=== PATIENT | female | born 1945 | race Caucasian/White ===

== ENCOUNTER 2016-10-19 10:33 | Day surgery (SDC) | payer OTHER, BC ==
[~2016-10-19] VITALS: Ht 175.3 cm; Wt 86.2 kg
[~2016-10-19 10:33] MED LIST: ATIVAN1 MG PO; OSTEO BI-FLEX1 EAC2 PO; PRINIVIL20 MG PO; SYNTHROID112 MCG PO; TUMS500 MG PO; ZOLOFT100 MG PO; ZOLOFT50 MG PO
[2016-10-19 11:10] LABS: HEMATOCRIT 42.3 % (36.0-46.0); MCH 28.9 PG (29.0-34.0); MCHC 32.6 G/DL (30.0-36.0); MCV 88.7 FL (83-99); MEAN PLAT.VOLUME 9.1 uM^3 (9.5-12.4); PLATELET COUNT 306 K/uL (156-360); RBC DIS.WIDTH-CV 11.8 % (11.8-14.6); RBC DIS.WIDTH-SD 38.7 % (39-53); RED BLOOD COUNT 4.77 M/uL (3.80-5.20); WHITE BLOOD COUNT 6.5 K/uL (4.1-10.2)
[2016-10-19 11:18] VITALS: BP 174/78
[2016-10-19 11:33] LABS: ALKALINE PHOSPHATASE 61 IU/L (3-129); ANION GAP 7 MEQ/L (2-14); CHLORIDE 105 MEQ/L (99-109); GFR ESTIMATE (CALCULATED) 58 mL/min/; GLUCOSE 90 mg/dL (70-99); POTASSIUM 4.7 MEQ/L (3.7-5.4); SAMPLE HEMOLYSIS CHECK 0; SAMPLE ICTERIC CHECK 0; SAMPLE LIPEMIA CHECK 0; SODIUM 140 MEQ/L (136-147); TOTAL BILIRUBIN 0.6 MG/DL (0.0-1.0); UREA NITROGEN (BUN) 15 mg/dL (9-23)
[2016-10-19 14:32] VITALS: BP 157/80
[2016-10-19 15:17] VITALS: BP 148/89
== END 2016-10-19 15:26 | disposition home or self-care (01) ==
LOC: SDC 10:33
PROVIDERS: Ophthalmology
DX: H33.002 Unspecified retinal detachment with retinal break, left eye (principal); H33.42 Traction detachment of retina, left eye; I10 Essential (primary) hypertension; C03.9 Malignant neoplasm of gum, unspecified; K21.9 Gastro-esophageal reflux disease without esophagitis
CPT/HCPCS: 80053; 85027; 93005; J0690; J1100; J1120; J2795; J3300

== ENCOUNTER 2016-11-10 11:05 | Day surgery (SDC) | payer OTHER, BC ==
[~2016-11-10] VITALS: Ht 165.1 cm; Wt 86.0 kg
[2016-11-10] MEDS ORDERED: MOTRIN IB200 MG PO (11:32)
[2016-11-10 11:35] VITALS: BP 178/83
[2016-11-10 15:43] VITALS: BP 176/82
[2016-11-10 16:12] VITALS: BP 159/74
== END 2016-11-10 16:18 | disposition home or self-care (01) ==
LOC: SDC 11:05
DX: H35.372 Puckering of macula, left eye (principal); I10 Essential (primary) hypertension; E03.9 Hypothyroidism, unspecified; R00.1 Bradycardia, unspecified; K21.9 Gastro-esophageal reflux disease without esophagitis
CPT/HCPCS: J0690; J1100; J1120; J1885; J2795; J3300; J7120

== ENCOUNTER 2017-05-13 05:37 | Day surgery (SDC) | payer OTHER, BC ==
[~2017-05-13] VITALS: Ht 165.1 cm; Wt 85.7 kg
[~2017-05-13 05:37] MED LIST changes: +MOTRIN IB200 MG PO
[2017-05-13 06:07] VITALS: BP 146/93
[2017-05-13 09:20] VITALS: BP 152/73
[2017-05-13 10:03] VITALS: BP 190/81
== END 2017-05-13 09:55 | disposition home or self-care (01) ==
LOC: SDC 05:37
DX: H33.42 Traction detachment of retina, left eye (principal); H43.392 Other vitreous opacities, left eye; I10 Essential (primary) hypertension; K21.9 Gastro-esophageal reflux disease without esophagitis; E03.9 Hypothyroidism, unspecified
CPT/HCPCS: J0690; J1100; J1120; J1885; J2405; J2795; J7120

== ENCOUNTER 2017-06-10 15:27 | Day surgery (SDC) | payer OTHER, BC ==
[~2017-06-10] VITALS: Ht 165.1 cm; Wt 85.9 kg
[2017-06-10 15:58] VITALS: BP 150/70
[2017-06-10 16:18] LABS: BASOPHIL (%) 1.2 % (0-1); BASOPHIL COUNT 0.1 K/uL (0-0.1); EOSINOPHIL (%) 1.5 % (0-5); EOSINOPHIL COUNT 0.1 K/uL (0-0.3); HEMATOCRIT 42.4 % (36.0-46.0); HEMOGLOBIN 14.5 G/DL (11.9-15.5); IMMATURE GRANULOCYTE (%) 0.3 % (0.0-0.7); LYMPHOCYTE (%) 36.4 % (15-42); LYMPHOCYTE COUNT 2.5 K/uL (1.0-2.8); MCH 29.7 PG (29.0-34.0); MCHC 34.2 G/DL (30.0-36.0); MCV 86.9 FL (83-99); MONOCYTE (%) 8.3 % (3-12); MONOCYTE COUNT 0.6 K/uL (0-0.8); NEUTROPHIL (%) 52.3 % (45-76); NEUTROPHIL COUNT 3.5 K/uL (1.8-6.4); PLATELET COUNT 325 K/uL (156-360); RBC DIS.WIDTH-CV 11.8 % (11.8-14.6); RBC DIS.WIDTH-SD 37.5 % (39-53); RED BLOOD COUNT 4.88 M/uL (3.80-5.20); WHITE BLOOD COUNT 6.7 K/uL (4.1-10.2)
[2017-06-10 16:22] LABS: POTASSIUM ND MEQ/L (3.7-5.4)
[2017-06-10 16:42] LABS: ALBUMIN 4.3 G/DL (3.2-4.8); ALKALINE PHOSPHATASE 71 IU/L (3-129); ALT (GPT) 12 IU/L (3-49); AST (GOT) 45 IU/L (2-34); CHLORIDE 105 MEQ/L (99-109); CREATININE 0.7 MG/DL (0.6-1.3); GFR ESTIMATE (CALCULATED) > 59 mL/min/; GLUCOSE 85 mg/dL (70-99); SODIUM 135 MEQ/L (136-147); TOTAL BILIRUBIN 0.8 MG/DL (0.0-1.0); TOTAL PROTEIN 8.1 G/DL (6.4-8.3); UREA NITROGEN (BUN) 16 mg/dL (9-23)
[2017-06-10 20:16] VITALS: BP 138/92
[2017-06-10 20:54] VITALS: BP 130/87
== END 2017-06-10 21:05 | disposition home or self-care (01) ==
LOC: SDC 15:27
PROVIDERS: Ophthalmology
PROC: 08B53ZZ Excision of Left Vitreous, Percutaneous Approach (ICD-10-PCS; principal; 2017-06-10)
PROC: 3E03329 Introduction of Other Anti-infective into Peripheral Vein, Percutaneous Approach (ICD-10-PCS; principal; 2017-06-10)
PROC: 3E0C33Z Introduction of Anti-inflammatory into Eye, Percutaneous Approach (ICD-10-PCS; principal; 2017-06-10)
PROC: 08NF3ZZ Release Left Retina, Percutaneous Approach (ICD-10-PCS; principal; 2017-06-10)
DX: H35.372 Puckering of macula, left eye (principal); I10 Essential (primary) hypertension; E78.5 Hyperlipidemia, unspecified; E03.9 Hypothyroidism, unspecified
CPT/HCPCS: 80053; 85025; J0690; J1100; J2250; J2405; J2795; J3010

== ENCOUNTER 2018-02-03 05:54 | Day surgery (SDC) | payer OTHER, BC ==
[~2018-02-03] VITALS: Ht 165.1 cm; Wt 85.7 kg
[~2018-02-03 05:54] MED LIST changes: +SYNTHROID125 MCG PO
[2018-02-03 06:39] VITALS: BP 145/96
[2018-02-03 09:00] VITALS: BP 181/79
[2018-02-03 09:35] VITALS: BP 135/69
== END 2018-02-03 09:48 | disposition home or self-care (01) ==
LOC: SDC 05:54
DX: H33.42 Traction detachment of retina, left eye (principal); H43.392 Other vitreous opacities, left eye
CPT/HCPCS: J0690; J1100; J2405; J2795; J3300